=== PATIENT | male | born 1970 | race Caucasian/White ===

== ENCOUNTER 2017-01-11 00:43 | Emergency (ER) | payer OTHER ==
[~2017-01-11] VITALS: Ht 182.9 cm; Wt 83.0 kg
[2017-01-11 00:44] VITALS: BP 143/94
[2017-01-11] MEDS ORDERED: LIDOCAINE 1%, 20ML ONE (00:54)
[2017-01-11] MEDS ORDERED: DIPH,PERTUSS(ACELL),TET VAC/PF 0.5 ML IM-VACC ONE ×2 (01:30→01:46)
[2017-01-11] MEDS ORDERED: LIDOCAINE 1%, 20ML SQ ONE (01:30)
== END 2017-01-11 02:10 | disposition home or self-care (01) ==
LOC: ED 02:04
DX: S61.211A Laceration without foreign body of left index finger without damage to nail, initial encounter (principal); W26.0XXA Contact with knife, initial encounter; Y93.89 Activity, other specified; Y92.89 Other specified places as the place of occurrence of the external cause; Y99.8 Other external cause status
CPT/HCPCS: 12001; 90471; 90715

== ENCOUNTER 2017-06-22 03:57 | Emergency (ER) | payer MEDICAID, OTHER ==
[~2017-06-22] VITALS: Ht 180.3 cm; Wt 82.6 kg
[2017-06-22] MEDS ORDERED: ACETAMINOPHEN 325 MG TABLET PO ONE (04:30)
[2017-06-22] MEDS ORDERED: ACETAMINOPHEN 325 MG TABLET ONE (04:31)
[2017-06-22] MEDS ORDERED: LEVO50TA5 PO (04:34)
[2017-06-22] MEDS ORDERED: SIMV10TA3 PO (04:34)
[2017-06-22] MEDS ORDERED: OMEP-110 PO (04:34)
[2017-06-22 05:44] VITALS: BP 138/74
== END 2017-06-22 05:46 | disposition home or self-care (01) ==
LOC: ED 05:43
DX: M79.641 Pain in right hand (principal); I10 Essential (primary) hypertension
CPT/HCPCS: 99284

== ENCOUNTER 2020-08-25 08:37 | Emergency (ER) | payer MEDICAID ==
[~2020-08-25] VITALS: Ht 182.9 cm; Wt 84.3 kg
[~2020-08-25 08:37] MED LIST: LEVO50TA5 PO; OMEP-110 PO; SIMV10TA18 PO
[2020-08-25 09:36] LABS: RAPID INFLUENZA A Negative (Negative); RAPID INFLUENZA B Negative (Negative)
[2020-08-25 09:40] VITALS: BP 140/83
--- NOTE | 2020-08-25 10:01 | NUR ---
Patient given discharge instructions and they have confirmed that they understand the instructions. Patient ambulatory with steady gait.
== END 2020-08-25 10:02 ==
LOC: ED 09:51
DX: B34.9 Viral infection, unspecified (principal); Z20.828 Contact with and (suspected) exposure to other viral communicable diseases; R00.0 Tachycardia, unspecified; M79.10 Myalgia, unspecified site; R05 Cough; R50.9 Fever, unspecified; I10 Essential (primary) hypertension; K21.9 Gastro-esophageal reflux disease without esophagitis; Z86.39 Personal history of other endocrine, nutritional and metabolic disease; Z79.899 Other long term (current) drug therapy
CPT/HCPCS: 87400; 87635; 93005; 99284